=== PATIENT | male | born 1985 | race Caucasian/White ===

== ENCOUNTER 2022-05-27 06:04 | Inpatient (IN) | payer OTHER ==
[~2022-05-27] VITALS: Ht 167.6 cm; Wt 45.9 kg
[2022-05-27 06:19] LABS: BASOPHILS ABSOLUTE AUTO 0.04 K/mm3 (0.00-0.23); BASOPHILS PERCENT AUTO 0 % (0-2); EOSINOPHILS ABSOLUTE AUTO 0.02 K/mm3 (0.00-0.68); EOSINOPHILS PERCENT AUTO 0 % (0-6); Hematocrit 46.8 % (37.0-53.0); Hemoglobin 15.8 g/dL (13.5-17.5); IMMATURE GRAN ABSOLUTE AUTO 0.33 K/mm3 (0.00-0.10); IMMATURE GRAN PERCENT AUTO 2 % (0-1); LYMPHOCYTES ABSOLUTE AUTO 2.76 K/mm3 (0.84-5.20); LYMPHOCYTES PERCENT AUTO 15 % (21-46); MONOCYTES ABSOLUTE AUTO 1.33 K/mm3 (0.16-1.47); MONOCYTES PERCENT AUTO 7 % (4-13); Mean Corpuscular HGB 30.2 pg (26.0-34.0); Mean Corpuscular HGB Conc 33.8 g/dL (31.5-36.5); Mean Corpuscular Volume 89 fL (80-100); Mean Platelet Volume 9.6 fL (9.1-12.4); NEUTROPHILS ABSOLUTE AUTO 13.77 K/mm3 (1.96-9.15); NEUTROPHILS PERCENT AUTO 76 % (41-73); NRBC ABSOLUTE 0.04 K/mm3 (0.00-0.02); NRBC Auto 0.2 /100 WBC (0.0-0.2); Platelet Count 187 K/mm3 (150-400); RDW Coefficient Variation 14.5 % (11.7-14.2); RDW Standard Deviation 47.2 fL (35.1-46.3); Red Blood Cell Count 5.24 M/mm3 (4.30-5.90); White Blood Cell Count 18.25 K/mm3 (4.00-11.30)
[2022-05-27 06:25] LABS: Calcium, Ionized (POC) 1.44 mmol/L (1.10-1.46); Chloride (POC) 101 mmol/L (98-108); Creatinine (POC) 2.6 mg/dL (0.8-1.3); Glucose (ISTAT POC) >700 mg/dL (70-99); Potassium (POC) 3.4 mmol/L (3.5-5.5); Sodium (POC) 128 mmol/L (135-148); Total CO2 (POC) 13 mmol/L (21-32)
[2022-05-27 06:43] LABS: Source, Urine Foley catheter
[2022-05-27 06:46] LABS: Bilirubin, Urine Neg (Neg); Blood, Urine 4+ (Neg); Color, Urine Yellow (P-Yellow); Glucose Qualitative, Urine 4+ (Neg); Ketones, Urine 3+ (Neg); Leukocyte Esterase, Urine Neg (Neg); Nitrite, Urine Neg (Neg); Protein, Urine 2+ (Neg); Urobilinogen, Urine NORM (Normal)
[2022-05-27 06:56] LABS: Magnesium, Blood 4.9 mg/dL (1.6-2.4)
[2022-05-27 07:00] LABS: Acetaminophen, Random <2.0 ug/mL (10.0-30.0); Ethanol (Alcohol), Blood, Med <3 mg/dL; Free Thyroxine 0.68 ng/dL (0.70-1.60); Salicylate 4.7 mg/dL (2.8-20.0)
[2022-05-27 07:01] LABS: Appearance, Urine Hazy (Clear); Bacteria Not Seen /hpf; Granular Casts 0-2 /lpf (0); Hyaline Casts 0-2 /lpf (0-2); Squamous Epithelial Cells Few /hpf (Few); White Blood Cells, Urine Not Seen /hpf (0-5)
[2022-05-27 07:15] LABS: Alanine Aminotransfer (ALT/SGP 302 U/L (12-78); Albumin, Blood 3.1 g/dL (3.4-5.0); Alk Phos 194 U/L (50-136); Anion Gap 30 mmol/L (6-16); Aspartate Aminotrans (AST/SGOT 381 U/L (12-37); Bilirubin, Total 0.5 mg/dL (0.1-1.0); Blood Urea Nitrogen 69 mg/dL (8-24); Bun/Creatinine Ratio 28.6 (12.0-20.0); Calcium, Blood 9.8 mg/dL (8.5-10.1); Chloride, Blood 93 mmol/L (98-108); Creatinine, Blood 2.41 mg/dL (0.60-1.20); Glomerular Filtration Rate 20 (60-); Glucose, Blood 854 mg/dL (70-99); Potassium, Blood 3.5 mmol/L (3.5-5.5); Sodium, Blood 130 mmol/L (136-145); Total Protein, Blood 6.1 g/dL (6.4-8.2)
[2022-05-27 07:16] LABS: U Amphetamine Screen Not Detected; U Barbituate Screen Not Detected; U Benzodiazapine Screen Not Detected; U Buprenorphine Screen Not Detected; U Cannabinoids Screen Not Detected; U Cocaine Screen Not Detected; U Methadone Screen Not Detected; U Methamphetamine Screen Not Detected; U Opiates Screen Not Detected; U Oxycodone Screen Not Detected; U Phencyclidine Screen Not Detected; U Propoxyphene Screen Not Detected
[2022-05-27 07:18] LABS: CO2, Blood 7 mmol/L (21-32)
[2022-05-27 07:19] LABS: PCO2 Arterial 24.2 mmHg (35-45); PO2 Arterial 411 mmHg (80-100); pH Blood Arterial 6.96 (7.35-7.45)
[2022-05-27 07:23] LABS: Phosphorus, Blood 9.2 mg/dL (2.5-4.9)
[2022-05-27 08:32] LABS: Base Excess Venous -24.2 mmol/L; Bicarbonate Venous 8.6 mmol/L (24.0-30.0); PCO2 Venous 33.6 mmHg (38-42); pH Blood Venous 6.97 (7.34-7.37)
[2022-05-27 08:48] LABS: Glucose, Blood 662 mg/dL (70-99)
[2022-05-27 09:16] LABS: Ethanol (Alcohol), Blood, Med <3 mg/dL; Magnesium, Blood 4.2 mg/dL (1.6-2.4)
[2022-05-27 09:59] LABS: Base Excess Venous -26.6 mmol/L; Bicarbonate Venous 8.1 mmol/L (24.0-30.0); PCO2 Venous 28.6 mmHg (38-42); pH Blood Venous 6.93 (7.34-7.37)
--- NOTE | 2022-05-27 10:00 | NUR ---
PT ARRIVED TO UNIT APPROXIMATELY @ 0920. INTUBATED, NO SEDATION INFUSING. PT UNRESPONSIVE TO VERBAL AND PAINFUL STIMULI PUPILS NONREACTIVE FIXED AT 2MM WITH SLIGHT UPWARD GAZE. NO COUGH OR GAG AT THIS TIME. PT INITIAL VENT SETTINGS: AC 16 450 PEEP 5 60%, INCREASED TO 70% 0942 R/T SPO2 <90%. LUNGS SOUNDS CTA ALL LUNG ZHENG, DIMMISHED IN LOWER LOBES. OG TUBE IN PLACE, PLACED TO LOW INTERMITENT SUCTION, BRWON NOTED. TEMP RAMIREZ IN PLACE, DRAINING TO GRAVITY. PT HYPOTHERMIC UPON ARRIVAL, JIM HUGGER IN PLACE. R FEM CVA IN PLACE c K+, LEVO, INSULIN INFUSING, SEE FLOWSHEET FOR TITRATION. LEVO REQUIRING INCREASED TITRATION UPON ARRIVAL. SKIN OVERALL INTACT, DEFIB PADS AND CRASH CART IN PLACE RISK OF CARDIAC ARREST. FAMILY AT BEDSIDE, AWAITING DR. UZAIR OLEARY.
[2022-05-27 10:27] LABS: Bun/Creatinine Ratio 35.1 (12.0-20.0); Creatinine, Blood 1.88 mg/dL (0.60-1.20); Potassium, Blood 3.5 mmol/L (3.5-5.5)
--- NOTE | 2022-05-27 10:44 | NUR ---
PER DR. DUNNE ADDITIONAL POTASSIUM INFUSING INITIATED. FOR AT TOTAL OF 20MEQ/HR THROUGH FEMORAL CENTRAL LINE. LR BOLUS INFUSING ALONG WITH BICARB ORDERED FOR PUSH NOW AFTER RECIEVING CRITICAL VALUE FROM LAB. PT REMAINS UNRESPONSIVE.
--- NOTE | 2022-05-27 11:37 | NUR ---
New referral received on admission to ICU. Pt on vent, unresponsive without sedation. Pt suffered SCA and DKA while traveling through area with parents. Pt has been resuscitated x 2 since being found down in hotel bathroom for undetermined amount of time by parents who called EMS and started CPR per nursing. Parents have left and will return this afternoon. Planned with Construction Driver to meet with parents for supportive visit, assist with answering questions and advance care planning if desired. Case conferenced with nursing, CM, Construction Driver, Dr, RT, dietitian. Visit to bedside. OG with dk brown output, slow warming with bear hugger noted. Pt appears thin, frail & older than chronological age. Will await update from nurses that parents have returned for afternoon visit.
[2022-05-27 12:15] LABS: Base Excess Venous -16.5 mmol/L; PCO2 Venous 29.2 mmHg (38-42)
--- NOTE | 2022-05-27 12:28 | NUR ---
UPDATE FAMILY BACK TO BEDSIDE. CHEST XRAY COMPLETED WITH CONCERNS FOR PNEUMO FROM POSSIBLE RIB FRACTURES R/T DESAT NOTED. LABS DRAWN, AWAITING RESULTS FOR BG LEVEL. NEURO REMAINS UNCHANGED, PT REMAINS UNRESPONSIVE. PLANS FOR HEAD CT AFTER FAMILY DISCUSSION WITH DR. DUNNE.
[2022-05-27 13:00] LABS: Bun/Creatinine Ratio 36.5 (12.0-20.0); Calcium, Blood 7.9 mg/dL (8.5-10.1); Creatinine, Blood 1.67 mg/dL (0.60-1.20); Potassium, Blood 3.2 mmol/L (3.5-5.5)
[2022-05-27 13:06] LABS: Influenza A, PCR NEGATIVE (NEGATIVE); Influenza B, PCR NEGATIVE (NEGATIVE); Resp Syncytial Virus, PCR NEGATIVE (NEGATIVE); SARS-Cov-2 (COVID-19) PCR, MMC NEGATIVE (NEGATIVE)
--- NOTE | 2022-05-27 13:30 | NUR ---
Joint visit to parents at bedside with Miko Self. Extended visit for support and conversation. Parents shared life review and interests of Song. They verbalized feeling guilt at not knowing how very ill Song was in the days prior to his SCA. They had discussed seeking tx for what appeared to be flu s/s and opted to wait until returning home to see a Dr per Song's preference. Parents feel they have a good understanding of pt's current status and prognosis after talking with Dr May this am. Code status discussed gently for direction in event pt's condition declines in the immediate future despite full care and current life support. Pt's mom is clear that she, and she believes Song would chose no CPR at this time. Dad is in agreement but would like some time to consider, which we encouraged him to take as needed. Pt out to radiol for CT of head and returned to room while we remained with parents. Pal Care to remain available for support to parents as needed. Head CT results pending this afternoon. RN and commissioned security officer updated on our conversation with parents.
--- NOTE | 2022-05-27 13:41 | NUR ---
PT TRANSPORTED TO CT VIA GURNEY, CONTINUES TO BE UNRESPONSIVE WITHOUT SEDATION. CT SCAN COMPLETED WITHOUT COMPLICATIONS. HOWEVER RETURNING TO THE ROOM B/P BEGAN TRENDING DOWNWARD. LEVO INCREASED TO 25MCG/MIN. DR. DUNNE NOTIFIED, EPI GTT ORDERED.
--- NOTE | 2022-05-27 14:18 | NUR ---
AFTER INCREASE TO LEVO PRESSURE REFLEXED TO BECOME HYPERTENSIVE. LEVO TITRATED DOWN, HOWEVER BP CONTINUED TO INCREASE. CT SCAN RESULTS PROCESSED AND READS "SEVERE CEREBRAL EDEMA" DR. DUNNE UPDATED. FINAL DISCHARGE INTITATED. FAMILY NOT AT BEDSIDE AT THIS TIME. PUPILS NO UNEQUAL, LEFT EYE 8MM, RIGHT EYE 2MM CONTINUES TO HAVE NO GAG OR COUGH. PER DR. DUNNE INSULIN GTT PLACED ON STAND BY AT THIS TIME, AWAITING ADDITIONAL ORDERS FOR POTASSIUM.
--- NOTE | 2022-05-27 14:53 | NUR ---
DR. DUNNE AT BEDSIDE TO REVIEW CT RESULTS WITH FAMILY. FAMILY TEARFUL, UNDERSTAND AND WOULD LIKE TO MOVE FORWARD WITH LIBERATING PT FROM VENT. THEY REQUESTED MOMENT OF PRIVACY WITH PT AND REQUESTED TO REMAIN AT BEDSIDE ONCE PT IS EXTUBATED. FINAL DC CALLED.PASTORAL CARE AT BEDSIDE.
--- NOTE | 2022-05-27 15:00 | NUR ---
[facility] care visit conducted. I spent over 45 minutes with family discussing the pt's personality and traits, their spiritual beliefs about the universe and reincarnation and helping them process the events that led to his hospitalization. Eleni our Palliative Care Rn joined our conversation and we bridged the conversation about DNR/DNI. I later returned to spend time with Mary and Dion as the CT scan revealed tragic outcomes and discussed the what the pt's body is telling us and that the weight of decision medical decision making has been really been removed from their shoulders. I provide therapeutic listening, spiritual/emotional support, gentle child guidance counselor and prayer. Family respond well and show signs of clear resolve and peace about the direction of removing aggressive care.
--- NOTE | 2022-05-27 15:07 | NUR ---
FAMILY WOULD LIKE TO MOVE FORWARD WITH EXTUBATION AT THIS TIME. DR. DUNNE NOTIFIED, MEDICATIONS ORDERED FOR AIR HUNGER, ORDERS TO CHANGE PT TO COMFORT CARE MEASURES AND TO D/C VASOPRESSORS AT TIME OF EXTUBATION.
--- NOTE | 2022-05-27 15:37 | NUR ---
EXTUBATION FAMILY REQUESTING TO MOVE FORWARD WITH COMFORT CARE AND WITHDRAWL FROM THE VENT. PT MED WITH MORPHINE PRIOR TO EXTUBATION WITH DR FRANCO. ALL IV INFUSIONS DCd AT TIME OF EXTUBATION. FAMILY REMAINS AT BEDSIDE WITH PASTORAL CARE. PT HR GRADUALLY DECLINED TO ASYSTOLE. CONFIRMED VIA AUSCULTATION. FAMILY REMAINS AT BEDSIDE. NOTIFIED OF TOD.
--- NOTE | 2022-05-27 16:15 | NUR ---
Spiritual care visit conducted. I am with family prior to Extubation. Family has songs to play after withdrawal of life support. Pt expires at 1543. I provide grief support and spiritual guidance. I then assist family with a plan for a and work through some complexities. I provide final support with hugs and encouragement.
== END 2022-05-27 15:43 | DRG 637 ==
LOC: ER 06:04 → EDBD 06:04 → ICUE 07:47 → ICUW 07:47 → ICUE 08:31
PROVIDERS: Emergency Medicine; Internal Medicine Critical Care Medicine; ADMIT Student in an Organized Health Care Education/Training Program
PROC: 3E033XZ Introduction of Vasopressor into Peripheral Vein, Percutaneous Approach (ICD-10-PCS; principal; 2022-05-27)
PROC: 5A12012 Performance of Cardiac Output, Single, Manual (ICD-10-PCS; 2022-05-27)
PROC: 0BH17EZ Insertion of Endotracheal Airway into Trachea, Via Natural or Artificial Opening (ICD-10-PCS; 2022-05-27)
PROC: 5A1935Z Respiratory Ventilation, Less than 24 Consecutive Hours (ICD-10-PCS; 2022-05-27)
PROC: 06HY33Z Insertion of Infusion Device into Lower Vein, Percutaneous Approach (ICD-10-PCS; 2022-05-27)
DX: E10.10 Type 1 diabetes mellitus with ketoacidosis without coma (principal); G93.6 Cerebral edema; I21.A1 Myocardial infarction type 2; N17.9 Acute kidney failure, unspecified; R57.1 Hypovolemic shock; Z51.5 Encounter for palliative care; Z66 Do not resuscitate; I46.8 Cardiac arrest due to other underlying condition; E87.5 Hyperkalemia; Z20.822 Contact with and (suspected) exposure to COVID-19; Z78.1 Physical restraint status; E86.0 Dehydration
CPT/HCPCS: 0241U; 31500; 36415; 36600; 51702; 70450; 71045; 80047; 80048; 80053; 81001; 82803; 82947; 83036; 83690; 83735; 84100; 84439; 84443; 84484; 85014; 85025; 93005; 93010; 94002; C9113; G0480; J0461; J1815; J2270; J3475; J3480; J7030; J7050; J7060; J7120